=== PATIENT | female | born 1985 | race American Indian/Alaskan Native ===

== ENCOUNTER 2020-12-28 14:56 | Inpatient (IN) | payer OTHER ==
[2020-12-28] MEDS ORDERED: ONDANSETRON 4 MG/2 ML INJ IV PRN (14:59)
[2020-12-28] MEDS ORDERED: OXYTOCIN 10 UNIT/1 ML INJ IM PRN (14:59)
[2020-12-28] MEDS ORDERED: LOPERAMIDE 2 MG CAP PO PRN (14:59)
[2020-12-28] MEDS ORDERED: ePHEDrine SULFATE 50 MG/1 ML INJ IV PRN ×2 (14:59→19:31)
[2020-12-28] MEDS ORDERED: TERBUTALINE 1 MG/1 ML INJ SUB-Q PRN (14:59)
[2020-12-28] MEDS ORDERED: CARBOPROST TROMETHAMINE 250 MCG/1 ML INJ IM PRN (14:59)
[2020-12-28] MEDS ORDERED: MINERAL OIL 30 ML ORAL LIQD PO PRN (14:59)
[2020-12-28] MEDS ORDERED: ACETAMINOPHEN 325 MG TAB PO PRN (14:59)
[2020-12-28] MEDS ORDERED: miSOPROStol 200 MCG TAB PR PRN (14:59)
--- NOTE | 2020-12-28 15:06 | History and Physical Report ---
History of Present Illness Date of examination: 12/28/20 Date of admission: 12/28/20 14:56 Chief complaint: IOl @ 39 weeks d/t morbid obesity per APA recommendations History of present illness: EDC Calculations by LMP: 01/04/2021 Past History : 1 Term Births: 0 Premature Births: 0 Living Children: 0 Para: 0 Mult. Births: 0 Prev : 0 Prev. attempt? 0 Aborta: 0 Elect. Ab: 0 Spont. Ab: 0 Ectopics: 0 Past Medical History: pre- BMI 51 Past Surgical History: Breast reduction - age 19 Past Medical History Surgery (Non-osteopathy doctor): Breast reduction - age 19 Abnormal PAP: negative Family Hx: no known family health issues no known family hx of cancer Social Hx: Car SED [employer] Infection History HIV Risk Eval: no Hepatitis B Risk Eval: low risk Personal hx. of genital herpes: no Partner hx. of genital herpes: no Rash, Viral, or Febrile illness since last LMP? no Genetic History Congenital Heart Defect: Mom: no Dad: no Ana Disease: Mom: no Dad: no Thalassemia Mom: no Dad: no Neural Tube Defect Mom: no Dad: no Down's Syndrome Mom: no Dad: no Joe-Sachs Mom: no Dad: no Sickle Cell Disease/Trait Mom: no Dad: no Hemophilia Mom: no Dad: no Muscular Dystrophy Mom: no Dad: no Cystic Fibrosis Mom: no Dad: no Vin Chorea Mom: no Dad: no Mental Retardation Mom: no Dad: no Fragile X Mom: no Dad: no Other Genetic/Chromosomal Disorder Mom: no Dad: no Child w/other defect Mom: no Dad: no Active Medications: None Current Allergies (reviewed today): No known allergies Past History Past Medical History: other (see HPI) Past Surgical History: other (see HPI) [employer] P[employer]ER History: other (see HPI) Family/Genetic History: other (see HPI) Social history: no significant social history - Obstetrical History Expected Date of Delivery: 01/04/21 Actual Gestation: 39 Week(s) 0 Day(s) : 1 Para: 0 Hx # Term Pregnancies: 0 Number of Pregnancies: 0 Spontaneous Abortions: 0 Induced : 0 Number of Living Children: 0 Medications and Allergies Allergies Allergy/AdvReac Type Severity Reaction Status Date / Time No Known Allergies Allergy Unverified 12/28/20 16:32 Home Medications Medication Instructions Recorded Confirmed Last Taken Type No Known Home Medications [No 12/28/20 12/28/20 Unknown History Reported Home Medications] Review of Systems All systems: negative - Physical Exam Breasts: Positive: normal Cardiovascular: Regular rate Lungs: Positive: Normal air movement Abdomen: Positive: normal appearance, soft, normal bowel sounds Genitourinary (Female): Positive: normal external genitalia, normal perenium Vulva: both: normal Vagina: Positive: normal moisture Anus/Rectum: Positive: normal perianal skin Extremities: Positive: normal Deep Tendon Reflex Grade: Normal +2 - Obstetrical FHR: auscultation normal (efm difficult d/t maternal habitus) Uterine Contraction Monitor Mode: External Cervical Dilatation: 1 Cervical Effacement Percentage: 80 station: -1 Uterine Contraction Frequency (min): none Uterine Tone Measurement Phase: Resting Results All other labs normal. Assessment and Plan 35 y/o @ 39+0 weeks, admitted for IOL per APA's recommendation based on obesity. GBS NEG. Will do low dose pit tonight after dinner. pt may have ambien PRN. nurses to call for pain medication needs. - Patient Problems (1) 39 weeks gestation of Current Visit: Yes Status: Acute (2) BMI 50.0-59.9, adult Current Visit: Yes Status: Acute
[2020-12-28] MEDS ORDERED: DINOPROSTONE 10 MG VAG SUPP VG ONE (17:00)
[2020-12-28] MEDS ORDERED: METHYLERGONOVINE MALEATE 0.2 MG/ML VIAL IM PRN (17:00)
[2020-12-28] MEDS ORDERED: LIDOCAINE (2%) 20 MG/1 ML VIAL 20 ML MDV INFILTRATI ONE (17:00)
[2020-12-28] MEDS ORDERED: OXYTOCIN DRIP 30 UNITS/500 ML BAG IV SCH ×3 (17:00→18:30)
[2020-12-28 18:29] LABS: Hematocrit 33.9 % (30.3-42.9); Hemoglobin 11.3 gm/dl (10.1-14.3); Mean Corpuscular HGB Conc 33 % (30-34); Mean Corpuscular Volume 82 fl (79-97); Platelet Count 272 K/mm3 (140-440); Red Blood Count 4.15 M/mm3 (3.65-5.03); Red Cell Distribution Width 15.5 % (13.2-15.2)
[2020-12-28] MEDS ORDERED: NALOXONE 2 MG/2 ML INJ IV PRN (19:31)
--- NOTE | 2020-12-28 19:31 | Anesthesia Consultation ---
Anesthesia Consult and Med Hx Date of service: 12/28/20 - Airway Anesthetic Teeth Evaluation: Good ROM Head & Neck: Adequate Mental/Hyoid Distance: Adequate Mallampati Class: Class II Intubation Access Assessment: Probably Good - Pulmonary Exam CTA: Yes - Cardiac Exam Cardiac Exam: RRR - Pre-Operative Health Status ASA Pre-Surgery Classification: ASA3 Proposed Anesthetic Plan: Epidural - Pulmonary Hx Asthma: No COPD: No Hx Pneumonia: No - Cardiovascular System Hx Hypertension: No - Central Nervous System Hx Seizures: No Hx Psychiatric Problems: No - Endocrine Hx Renal Disease: No Hx End Stage Renal Disease: No Hx Hypothyroidism: No Hx Hyperthyroidism: No - Hematic Hx Anemia: No Hx Sickle Cell Disease: No - Other Systems Hx Alcohol Use: No Hx Obesity: Yes
[2020-12-28] MEDS: LACTATED RINGERS 1,000 ML IV SCH (19:54)
[2020-12-28] MEDS ORDERED: ZOLPIDEM 5 MG TAB PO ONE (21:00)
--- NOTE | 2020-12-29 06:45 | Progress Note ---
Assessment and Plan Pt resting Only question "How long is this going to take?" Explained serial IOL and that it may take 2-3 days Depending on her body's response to the induction agents. Pt voiced understanding. BP 130-120/80-70 FHR Cat 1. Ctx irreg frequency mild/mod. SVE unchanged. Pitocin low dose overnight Will begin routine IOL @ 0900 with pit 4mu increasing 4mu Q30min. All questions addressed. Re-eval as needed Subjective - Subjective Date of service: 12/29/20 (pt states some ctx hurt other do not) Principal diagnosis: IUP @ 39w1 day for IOL Patient reports: movement normal Objective - Vital Signs Vital Signs: Vital Signs - 12hr 12/28/20 12/28/20 12/28/20 18:40 18:45 18:50 Temperature Pulse Rate 84 78 85 Blood Pressure O2 Sat by Pulse 99 99 98 Oximetry 12/28/20 12/28/20 12/28/20 18:55 19:00 19:05 Temperature 98.1 F Pulse Rate 82 80 89 Blood Pressure 108/64 O2 Sat by Pulse 98 98 98 Oximetry 12/28/20 12/28/20 12/28/20 19:10 19:28 19:33 Temperature Pulse Rate 89 82 89 Blood Pressure O2 Sat by Pulse 99 100 99 Oximetry 12/28/20 12/28/20 12/28/20 19:38 19:43 19:48 Temperature Pulse Rate 82 83 81 Blood Pressure O2 Sat by Pulse 99 98 99 Oximetry 12/28/20 12/28/20 12/28/20 19:53 19:55 19:58 Temperature Pulse Rate 92 H 90 89 Blood Pressure 126/84 O2 Sat by Pulse 98 99 Oximetry 12/28/20 12/28/20 12/28/20 20:03 20:08 20:13 Temperature Pulse Rate 90 85 81 Blood Pressure O2 Sat by Pulse 99 99 99 Oximetry 12/28/20 12/28/20 12/28/20 20:18 20:23 20:28 Temperature Pulse Rate 92 H 84 85 Blood Pressure O2 Sat by Pulse 99 99 100 Oximetry 12/28/20 12/28/20 12/28/20 20:30 20:33 20:38 Temperature Pulse Rate 90 92 H 88 Blood Pressure O2 Sat by Pulse 93 99 99 Oximetry 12/28/20 12/28/2012/28/21 20:43 20:48 20:53 Temperature Pulse Rate 81 83 84 Blood Pressure O2 Sat by Pulse 99 99 99 Oximetry 12/28/20 12/28/20 12/28/20 20:55 20:58 21:03 Temperature Pulse Rate 83 84 84 Blood Pressure 128/81 O2 Sat by Pulse 98 98 Oximetry 12/28/20 12/28/20 12/28/20 21:08 21:13 21:18 Temperature Pulse Rate 86 85 80 Blood Pressure O2 Sat by Pulse 98 98 97 Oximetry 12/28/20 12/28/20 12/28/20 21:23 21:28 21:33 Temperature Pulse Rate 82 78 88 Blood Pressure O2 Sat by Pulse 98 98 100 Oximetry 12/28/20 12/28/20 12/28/20 21:38 21:43 21:47 Temperature Pulse Rate 78 80 80 Blood Pressure O2 Sat by Pulse 99 98 92 Oximetry 12/28/20 12/28/20 12/28/20 21:48 21:53 21:55 Temperature Pulse Rate 80 78 75 Blood Pressure 133/85 O2 Sat by Pulse 98 96 Oximetry 12/28/20 12/28/20 12/28/20 21:58 22:03 22:08 Temperature Pulse Rate 78 78 78 Blood Pressure O2 Sat by Pulse 96 96 96 Oximetry 12/28/20 12/28/20 12/28/20 22:13 22:18 22:23 Temperature Pulse Rate 79 84 76 Blood Pressure O2 Sat by Pulse 96 96 97 Oximetry 12/28/20 12/28/20 12/28/20 22:28 22:33 22:38 Temperature Pulse Rate 80 79 81 Blood Pressure O2 Sat by Pulse 98 99 98 Oximetry 12/28/20 12/28/20 12/28/20 22:43 22:48 22:55 Temperature Pulse Rate 75 85 85 Blood Pressure 136/87 O2 Sat by Pulse 98 99 Oximetry 12/28/20 12/28/20 12/28/20 23:00 23:05 23:10 Temperature 98.1 F Pulse Rate 81 80 Blood Pressure O2 Sat by Pulse 99 98 Oximetry 12/28/20 12/28/20 12/28/20 23:15 23:20 23:25 Temperature Pulse Rate 81 79 77 Blood Pressure O2 Sat by Pulse 99 98 98 Oximetry 12/28/20 12/28/2012/28/21 23:30 23:35 23:39 Temperature Pulse Rate 74 79 73 Blood Pressure O2 Sat by Pulse 99 98 94 Oximetry 12/28/20 12/28/20 12/28/20 23:40 23:45 23:50 Temperature Pulse Rate 71 79 77 Blood Pressure O2 Sat by Pulse 97 99 99 Oximetry 12/28/20 12/29/20 12/29/20 23:55 00:00 00:05 Temperature Pulse Rate 80 76 79 Blood Pressure 130/79 O2 Sat by Pulse 97 98 98 Oximetry 12/29/20 12/29/20 12/29/20 00:10 00:15 00:20 Temperature Pulse Rate 78 83 78 Blood Pressure O2 Sat by Pulse 99 99 99 Oximetry 12/29/20 12/29/20 12/29/20 00:25 00:30 00:35 Temperature Pulse Rate 74 87 79 Blood Pressure O2 Sat by Pulse 99 95 98 Oximetry 12/29/20 12/29/20 12/29/20 00:40 00:45 00:50 Temperature Pulse Rate 74 77 80 Blood Pressure O2 Sat by Pulse 100 99 99 Oximetry 12/29/20 12/29/20 12/29/20 00:55 01:00 01:11 Temperature Pulse Rate 75 81 80 Blood Pressure 107/63 O2 Sat by Pulse 98 99 98 Oximetry 12/29/20 12/29/20 12/29/20 01:16 01:21 01:26 Temperature Pulse Rate 89 83 78 Blood Pressure O2 Sat by Pulse 99 100 99 Oximetry 12/29/20 12/29/20 12/29/20 01:31 01:36 01:41 Temperature Pulse Rate 80 78 74 Blood Pressure O2 Sat by Pulse 99 98 99 Oximetry 12/29/20 12/29/20 12/29/20 01:46 01:51 01:55 Temperature Pulse Rate 71 72 69 Blood Pressure 138/79 O2 Sat by Pulse 98 98 Oximetry 12/29/20 12/29/20 12/29/20 01:56 02:01 02:04 Temperature Pulse Rate 72 70 70 Blood Pressure O2 Sat by Pulse 97 97 94 Oximetry 12/29/20 12/29/20 12/29/20 02:06 02:11 02:13 Temperature Pulse Rate 68 69 73 Blood Pressure O2 Sat by Pulse 97 99 91 Oximetry 12/29/20 12/29/2012/29/21 02:16 02:19 02:21 Temperature Pulse Rate 70 70 62 Blood Pressure O2 Sat by Pulse 98 92 96 Oximetry 12/29/20 12/29/20 12/29/20 02:26 02:31 02:40 Temperature Pulse Rate 68 82 86 Blood Pressure O2 Sat by Pulse 96 98 98 Oximetry 12/29/20 12/29/20 12/29/20 02:45 02:50 02:55 Temperature Pulse Rate 73 76 77 Blood Pressure 132/75 O2 Sat by Pulse 100 99 98 Oximetry 12/29/20 12/29/20 12/29/20 03:00 03:05 03:10 Temperature Pulse Rate 71 75 81 Blood Pressure O2 Sat by Pulse 98 99 98 Oximetry 12/29/20 12/29/20 12/29/20 03:11 03:15 03:20 Temperature Pulse Rate 82 76 79 Blood Pressure O2 Sat by Pulse 87 98 96 Oximetry 12/29/20 12/29/20 12/29/20 03:25 03:30 03:35 Temperature Pulse Rate 71 70 71 Blood Pressure O2 Sat by Pulse 98 97 97 Oximetry 12/29/20 12/29/20 12/29/20 03:40 03:45 03:48 Temperature Pulse Rate 70 70 80 Blood Pressure O2 Sat by Pulse 98 99 91 Oximetry 12/29/20 12/29/20 12/29/20 03:50 03:55 04:00 Temperature Pulse Rate 71 68 66 Blood Pressure 135/81 O2 Sat by Pulse 97 98 98 Oximetry 12/29/20 12/29/20 12/29/20 04:05 04:10 04:15 Temperature Pulse Rate 70 76 67 Blood Pressure O2 Sat by Pulse 97 94 91 Oximetry 12/29/20 12/29/20 12/29/20 04:20 04:25 04:27 Temperature Pulse Rate 82 75 69 Blood Pressure O2 Sat by Pulse 89 90 90 Oximetry 12/29/20 12/29/20 12/29/20 04:30 04:32 04:35 Temperature Pulse Rate 82 61 72 Blood Pressure O2 Sat by Pulse 90 89 81 L Oximetry 12/29/20 12/29/20 12/29/20 04:38 04:40 04:44 Temperature Pulse Rate 73 79 74 Blood Pressure O2 Sat by Pulse 92 99 91 Oximetry 12/29/20 12/29/2021 04:45 04:50 04:55 Temperature Pulse Rate 79 80 89 Blood Pressure 126/80 O2 Sat by Pulse 99 97 96 Oximetry 12/29/20 12/29/20 12/29/20 05:08 05:13 05:18 Temperature Pulse Rate 37 L 91 H 79 Blood Pressure O2 Sat by Pulse 96 99 98 Oximetry 12/29/20 12/29/20 12/29/20 05:23 05:28 05:33 Temperature Pulse Rate 70 79 69 Blood Pressure O2 Sat by Pulse 98 98 97 Oximetry 12/29/20 12/29/20 12/29/20 05:38 05:43 05:48 Temperature Pulse Rate 89 83 79 Blood Pressure O2 Sat by Pulse 99 98 99 Oximetry 12/29/20 12/29/20 12/29/20 05:53 05:55 05:58 Temperature Pulse Rate 76 71 76 Blood Pressure 124/78 O2 Sat by Pulse 99 97 Oximetry 12/29/20 12/29/20 12/29/20 05:59 06:03 06:08 Temperature Pulse Rate 89 76 88 Blood Pressure O2 Sat by Pulse 94 98 98 Oximetry 12/29/20 12/29/20 12/29/20 06:13 06:18 06:23 Temperature Pulse Rate 70 73 78 Blood Pressure O2 Sat by Pulse 96 98 97 Oximetry 12/29/20 12/29/20 06:28 06:33 Temperature Pulse Rate 77 82 Blood Pressure O2 Sat by Pulse 98 98 Oximetry - Exam Breasts: deferred Cardiovascular: Regular rate Lungs: Clear to auscultation Abdomen: Present: normal appearance, soft. Absent: distention, tenderness Uterus: Present: normal FHR: auscultation normal, category 1 Uterine Contraction Monitor Mode: External Cervical Dilatation: 1 Cervical Effacement Percentage: 100 station: -1 Uterine Contraction Pattern: Irregular Uterine Tone Measurement Phase: Resting Uterine Contraction Intensity: Mild Extremities: edema Deep Tendon Reflex Grade: Normal +2 - Labs Labs: Abnormal Labs 12/28/20 18:16 MCH 27 L RDW 15.5 H Laboratory Results - last 24 hr 12/28/20 12/28/20 12/28/20 17:56 18:16 18:16 WBC 9.8 RBC 4.15 Hgb 11.3 Hct 33.9 MCV 82 MCH 27 L MCHC 33 RDW 15.5 H Plt Count 272 Syphilis IgG Antibody Nonreactive HIV 1&2 Antibody Rapid HIV P24 Antigen Blood Type O POSITIVE Antibody Screen Negative 12/28/20 18:16 WBC RBC Hgb Hct MCV MCH MCHC RDW Plt Count Syphilis IgG Antibody HIV 1&2 Antibody Rapid Non react HIV P24 Antigen Non react Blood Type Antibody Screen
[2020-12-29] MEDS ORDERED: OXYTOCIN DRIP 30 UNITS/500 ML BAG IV SCH (09:00)
[2020-12-29] MEDS: LACTATED RINGERS 1,000 ML IV SCH ×3 (10:26→17:48)
--- NOTE | 2020-12-29 16:38 | Progress Note ---
Assessment and Plan Pt OOB to toilet SVE done after 3-4,80,-2 head now OT presentation. Pit @12mu Bolus started for epidural Dr Wasserman made aware of pt status. Text sent to Leander jones . Pt stable. Anticipate delivery later tonight. Subjective - Subjective Date of service: 12/29/20 (Pt states she is really feeling her ctx now) Principal diagnosis: IUP @ 39w1 day for IOL Patient reports: movement normal Objective - Vital Signs Vital Signs: Vital Signs - 12hr 12/29/20 12/29/20 12/29/20 04:35 04:38 04:40 Temperature Pulse Rate 72 73 79 Respiratory Rate Blood Pressure O2 Sat by Pulse 81 L 92 99 Oximetry 12/29/20 12/29/20 12/29/20 04:44 04:45 04:50 Temperature Pulse Rate 74 79 80 Respiratory Rate Blood Pressure O2 Sat by Pulse 91 99 97 Oximetry 12/29/20 12/29/20 12/29/20 04:55 05:08 05:13 Temperature Pulse Rate 89 37 L 91 H Respiratory Rate Blood Pressure 126/80 O2 Sat by Pulse 96 96 99 Oximetry 12/29/20 12/29/20 12/29/20 05:18 05:23 05:28 Temperature Pulse Rate 79 70 79 Respiratory Rate Blood Pressure O2 Sat by Pulse 98 98 98 Oximetry 12/29/20 12/29/20 12/29/20 05:33 05:38 05:43 Temperature Pulse Rate 69 89 83 Respiratory Rate Blood Pressure O2 Sat by Pulse 97 99 98 Oximetry 12/29/20 12/29/20 12/29/20 05:48 05:53 05:55 Temperature Pulse Rate 79 76 71 Respiratory Rate Blood Pressure 124/78 O2 Sat by Pulse 99 99 Oximetry 12/29/20 12/29/20 12/29/20 05:58 05:59 06:03 Temperature Pulse Rate 76 89 76 Respiratory Rate Blood Pressure O2 Sat by Pulse 97 94 98 Oximetry 12/29/20 12/29/20 12/29/20 06:08 06:13 06:18 Temperature Pulse Rate 88 70 73 Respiratory Rate Blood Pressure O2 Sat by Pulse 98 96 98 Oximetry 12/29/20 12/29/20 12/29/20 06:23 06:28 06:33 Temperature Pulse Rate 78 77 82 Respiratory Rate Blood Pressure O2 Sat by Pulse 97 98 98 Oximetry 12/29/20 12/29/20 12/29/20 06:38 06:43 06:48 Temperature Pulse Rate 81 77 82 Respiratory Rate Blood Pressure O2 Sat by Pulse 99 99 99 Oximetry 12/29/20 12/29/20 12/29/20 06:53 06:55 06:58 Temperature Pulse Rate 76 74 76 Respiratory Rate Blood Pressure 136/79 O2 Sat by Pulse 99 99 Oximetry 12/29/20 12/29/20 12/29/20 07:03 07:08 07:09 Temperature 98.1 F Pulse Rate 73 74 Respiratory 18 Rate Blood Pressure O2 Sat by Pulse 100 100 Oximetry 12/29/20 12/29/20 12/29/20 07:13 07:18 07:22 Temperature Pulse Rate 75 73 75 Respiratory Rate Blood Pressure 130/85 O2 Sat by Pulse 98 98 Oximetry 12/29/20 12/29/20 12/29/20 07:23 07:28 07:33 Temperature Pulse Rate 80 82 76 Respiratory Rate Blood Pressure O2 Sat by Pulse 98 99 97 Oximetry 12/29/20 12/29/20 12/29/20 07:38 07:39 07:43 Temperature Pulse Rate 69 76 80 Respiratory Rate Blood Pressure O2 Sat by Pulse 95 94 99 Oximetry 12/29/20 12/29/20 12/29/20 07:48 07:53 07:55 Temperature Pulse Rate 88 69 78 Respiratory Rate Blood Pressure 123/78 O2 Sat by Pulse 99 99 Oximetry 12/29/20 12/29/20 12/29/20 07:58 08:03 08:08 Temperature Pulse Rate 83 77 73 Respiratory Rate Blood Pressure O2 Sat by Pulse 99 99 99 Oximetry 12/29/20 12/29/20 12/29/20 08:13 08:18 08:23 Temperature Pulse Rate 75 76 78 Respiratory Rate Blood Pressure O2 Sat by Pulse 99 98 100 Oximetry 12/29/20 12/29/20 12/29/20 08:28 08:33 08:38 Temperature Pulse Rate 72 82 74 Respiratory Rate Blood Pressure O2 Sat by Pulse 98 98 98 Oximetry 12/29/20 12/29/20 12/29/20 08:43 08:48 08:53 Temperature Pulse Rate 76 74 77 Respiratory Rate Blood Pressure O2 Sat by Pulse 98 98 96 Oximetry 12/29/20 12/29/20 12/29/20 08:55 08:58 09:03 Temperature Pulse Rate 74 75 78 Respiratory Rate Blood Pressure 131/72 O2 Sat by Pulse 98 98 Oximetry 12/29/20 12/29/20 12/29/20 09:08 09:13 09:18 Temperature Pulse Rate 79 82 71 Respiratory Rate Blood Pressure O2 Sat by Pulse 99 98 99 Oximetry 12/29/20 12/29/20 12/29/20 09:23 09:28 09:41 Temperature Pulse Rate 81 89 94 H Respiratory Rate Blood Pressure O2 Sat by Pulse 100 98 100 Oximetry 12/29/20 12/29/20 12/29/20 09:46 09:51 09:55 Temperature Pulse Rate 85 80 78 Respiratory Rate Blood Pressure 123/75 O2 Sat by Pulse 99 100 Oximetry 12/29/20 12/29/20 12/29/20 09:56 10:05 10:10 Temperature Pulse Rate 82 82 80 Respiratory Rate Blood Pressure O2 Sat by Pulse 99 99 100 Oximetry 12/29/20 12/29/20 12/29/20 10:15 10:20 10:25 Temperature Pulse Rate 79 81 74 Respiratory Rate Blood Pressure O2 Sat by Pulse 99 99 100 Oximetry 12/29/20 12/29/20 12/29/20 10:30 10:35 10:40 Temperature Pulse Rate 83 85 73 Respiratory Rate Blood Pressure O2 Sat by Pulse 99 99 99 Oximetry 12/29/20 12/29/20 12/29/20 10:45 10:50 10:55 Temperature Pulse Rate 77 76 73 Respiratory Rate Blood Pressure 130/69 O2 Sat by Pulse 99 99 96 Oximetry 12/29/20 12/29/20 12/29/20 11:00 11:05 11:10 Temperature Pulse Rate 76 91 H 79 Respiratory Rate Blood Pressure O2 Sat by Pulse 99 99 99 Oximetry 12/29/20 12/29/20 12/29/20 11:21 11:26 11:31 Temperature Pulse Rate 87 78 78 Respiratory Rate Blood Pressure O2 Sat by Pulse 100 99 99 Oximetry 12/29/20 12/29/20 12/29/20 11:36 11:41 11:46 Temperature Pulse Rate 76 80 81 Respiratory Rate Blood Pressure O2 Sat by Pulse 99 98 96 Oximetry 12/29/20 12/29/20 12/29/20 11:51 11:56 12:01 Temperature Pulse Rate 82 73 79 Respiratory Rate Blood Pressure O2 Sat by Pulse 99 98 99 Oximetry 12/29/20 12/29/20 12/29/20 12:06 12:11 12:16 Temperature Pulse Rate 77 78 81 Respiratory Rate Blood Pressure 121/73 O2 Sat by Pulse 98 99 97 Oximetry 12/29/20 12/29/20 12/29/20 12:21 12:26 12:31 Temperature Pulse Rate 75 80 76 Respiratory Rate Blood Pressure O2 Sat by Pulse 98 100 99 Oximetry 12/29/20 12/29/20 12/29/20 12:36 12:41 12:42 Temperature 98.1 F Pulse Rate 76 82 Respiratory 18 Rate Blood Pressure O2 Sat by Pulse 99 100 Oximetry 12/29/20 12/29/20 12/29/20 12:46 12:51 12:55 Temperature Pulse Rate 74 78 72 Respiratory Rate Blood Pressure 114/72 O2 Sat by Pulse 100 100 Oximetry 12/29/20 12/29/20 12/29/20 12:56 13:01 13:06 Temperature Pulse Rate 92 H 72 74 Respiratory Rate Blood Pressure O2 Sat by Pulse 100 99 99 Oximetry 12/29/20 12/29/20 12/29/20 13:11 13:16 13:21 Temperature Pulse Rate 71 85 78 Respiratory Rate Blood Pressure O2 Sat by Pulse 99 99 98 Oximetry 12/29/20 12/29/20 12/29/20 13:26 13:31 13:36 Temperature Pulse Rate 75 80 73 Respiratory Rate Blood Pressure O2 Sat by Pulse 98 99 99 Oximetry 12/29/20 12/29/20 12/29/20 13:41 13:46 13:51 Temperature Pulse Rate 91 H 76 74 Respiratory Rate Blood Pressure O2 Sat by Pulse 99 99 98 Oximetry 12/29/20 12/29/20 12/29/20 13:55 13:56 14:01 Temperature Pulse Rate 77 79 75 Respiratory Rate Blood Pressure 118/64 O2 Sat by Pulse 99 98 Oximetry 12/29/20 12/29/20 12/29/20 14:06 14:11 14:16 Temperature Pulse Rate 75 81 86 Respiratory Rate Blood Pressure O2 Sat by Pulse 99 99 97 Oximetry 12/29/20 12/29/20 12/29/20 14:21 15:17 15:22 Temperature Pulse Rate 82 77 76 Respiratory Rate Blood Pressure O2 Sat by Pulse 98 100 98 Oximetry 12/29/20 12/29/20 12/29/20 15:27 15:32 15:37 Temperature Pulse Rate 77 82 82 Respiratory Rate Blood Pressure O2 Sat by Pulse 99 100 97 Oximetry 12/29/20 12/29/20 12/29/20 15:42 15:47 15:52 Temperature Pulse Rate 78 77 84 Respiratory Rate Blood Pressure O2 Sat by Pulse 99 100 99 Oximetry 12/29/20 12/29/20 12/29/20 15:56 15:57 16:02 Temperature Pulse Rate 74 77 72 Respiratory Rate Blood Pressure 106/59 O2 Sat by Pulse 100 100 Oximetry 12/29/20 16:07 Temperature Pulse Rate 79 Respiratory Rate Blood Pressure O2 Sat by Pulse 99 Oximetry - Exam Breasts: deferred Cardiovascular: Regular rate Lungs: Normal air movement Abdomen: Present: normal appearance, soft. Absent: distention, tenderness Uterus: Present: normal FHR: auscultation normal, category 1 Uterine Contraction Monitor Mode: External Cervical Dilatation: 3.5 (Baby is now OT) Cervical Effacement Percentage: 80 station: -2 Uterine Contraction Pattern: Regular Uterine Tone Measurement Phase: Resting Uterine Contraction Intensity: Moderate Extremities: edema Deep Tendon Reflex Grade: Normal +2 - Labs Labs: Abnormal Labs 12/28/20 18:16 MCH 27 L RDW 15.5 H Laboratory Results - last 24 hr 12/28/20 12/28/20 12/28/20 17:56 18:16 18:16 WBC 9.8 RBC 4.15 Hgb 11.3 Hct 33.9 MCV 82 MCH 27 L MCHC 33 RDW 15.5 H Plt Count 272 Syphilis IgG Antibody Nonreactive Coronavirus (PCR) HIV 1&2 Antibody Rapid HIV P24 Antigen Blood Type O POSITIVE Antibody Screen Negative 12/28/20 12/29/20 18:16 09:21 WBC RBC Hgb Hct MCV MCH MCHC RDW Plt Count Syphilis IgG Antibody Coronavirus (PCR) Negative HIV 1&2 Antibody Rapid Non react HIV P24 Antigen Non react Blood Type Antibody Screen
--- NOTE | 2020-12-29 17:25 | Progress Note ---
Labor Epidural - Labor Epidural Start Time: 17:09 Stop Time: 17:19 Performed by:: SIMONA AREVALO Procedure: Patient is requesting epidural for labor pain. H&P, and labs reviewed. Procedure explained, questions answered, consent obtained. Patient in sitting position with blood pressure cuff and pulse ox on and working. Timeout performed immediately before start of procedure. Sterile chlorahexadine 0.5% prep/drape. 3 mL 1% lidocaine skin wheal at L[3]-L[4]. 18-gauge Criteotead epidural needle advanced to [id number] with saline at 9 cm. Epidural catheter advanced to 15 cm, negative aspiration for blood and csf, negative test dose 3 ml 1.5% lidocaine with epinephrine. Epidural dexmedetomidine [30] mcg administered. Sterile steri-strips and tegaderm applied, followed by tape reinforcement. Patient tolerated procedure well. Watson CAN
[2020-12-29] MEDS: fentaNYL-BUPIV 2 MCG/ML-0.125% 200 MCG/100 ML BAG EPIDURAL SCH (17:55)
--- NOTE | 2020-12-29 20:10 | Event Note ---
Date: 12/29/20 CNM at bedside, pt consented for internal monitoring and AROM, clear fluid noted and internal monitors placed d/t fetus difficult to trace. SVE 4/50/-2 VTX with CAT 2 FHT's noted, DR. Wasserman notified and to bedside for strip review and POC discussion with pt. Pt made aware of poss. plan for C/S if Cat 2 strip continues. Now Cat 1 with Pitocin off, O2 @10L via face mask, and RL positioning; continue to monitor pt closely, restart Pitocin with Cat 1 strip; anticipate .
[2020-12-30] MEDS: fentaNYL-BUPIV 2 MCG/ML-0.125% 200 MCG/100 ML BAG EPIDURAL SCH (01:47)
[2020-12-30] MEDS: LACTATED RINGERS 1,000 ML IV SCH (06:18)
--- NOTE | 2020-12-30 07:38 | Procedure Note ---
OB Delivery Note - Delivery Date of Delivery: 12/30/20 Surgeon: MYLA REYNOSO (Dr. Wasserman present for delivery) Estimated blood loss: <100cc - Vaginal Delivery presentation: vertex Delivery position: OA Intrapartum events: mult. late decelerations, mult.variable deceleratio Delivery induction: oxytocin Delivery augmentation: rupture of membranes Delivery monitor: external FHT, external uterine, internal FHT, internal uterine Route of delivery: Delivery placenta: spontaneous Delivery cord: 3 umbilical vessels Episiotomy: none Delivery laceration: 1st degree Delivery repair: other (hemostatic and repair not needed) Anesthesia: epidural - A at 1 minute: 8 at 5 minutes: 9 Gender: Female (5lbs 8oz)
[2020-12-30] MEDS ORDERED: BENZOCAINE/MENTHOL 20/0.5% TOP SPRAY 56 GM TP PRN (11:00)
[2020-12-30] MEDS ORDERED: LANOLIN/ZINC/DIMETHICONE (LANSINOH) 7 GM TP PRN (11:00)
[2020-12-30] MEDS ORDERED: ONDANSETRON 4 MG/2 ML INJ IV PRN (11:00)
[2020-12-30] MEDS ORDERED: diphenhydrAMINE 25 MG CAP PO PRN (11:00)
[2020-12-30] MEDS ORDERED: WITCH HAZEL/ GLYCERIN PAD TP PRN (11:00)
[2020-12-30] MEDS ORDERED: PROMETHAZINE 25 MG TAB PO PRN (11:00)
[2020-12-30] MEDS: IBUPROFEN 600 MG TAB PO SCH ×2 (12:33→17:50)
[2020-12-30] MEDS: PRENATAL VIT27-FE FUMARATE-FOLIC ACID VIT TAB PO SCH (12:33)
--- NOTE | 2020-12-30 16:43 | Post Anesthesia Evaluation ---
- Post Anesthesia Evaluation Patient Participated: Yes Airway Patent: Yes Stable Respiratory Function: Yes Nausea/Vomiting: No Temp > 96.8F: Yes Pain Manageable: Yes Adequeate Hydration: Yes Anesthesia Complications: No Block Receding Appropriately: Yes Patient on Ventilator: No
[2020-12-30] MEDS ORDERED: ACETAMINOPHEN 500 MG TAB PO PRN (20:00)
[2020-12-30 20:54] LABS: Hematocrit 33.5 % (30.3-42.9); Hemoglobin 11.2 gm/dl (10.1-14.3)
[2020-12-30] MEDS ORDERED: MAGNESIUM HYDROXIDE (MOM) ORAL LIQD UDC PO PRN (22:00)
[2020-12-30] MEDS: FERROUS SULFATE 325 MG TAB PO SCH (22:21)
[2020-12-30] MEDS: DOCUSATE SODIUM 100 MG CAP PO SCH (22:22)
[2020-12-31] MEDS: IBUPROFEN 600 MG TAB PO SCH ×3 (01:07→12:15)
--- NOTE | 2020-12-31 08:48 | Event Note ---
Date: 12/31/20 (Some elevated blood pressures.) Pt with some elevated blood pressures after delivery. Blood pressure ranges have mostly been 120-140's/60-80's. There was one blood pressure that was 167/77. Spoke with patient regarding plan to draw labs before she can be discharged home. We also discussed that she will need to come to the office in 1 week for a blood pressure check. Pt verbalized understanding. She currently denies ROWE, blurred vision, spots before her eyes, shortness of breath, chest pain, and upper abdominal pain. Spoke with patient's RN and she is aware that labs will be drawn.
[2020-12-31 11:38] LABS: Hematocrit 32.5 % (30.3-42.9); Hemoglobin 10.8 gm/dl (10.1-14.3); Mean Corpuscular HGB Conc 33 % (30-34); Mean Corpuscular Volume 82 fl (79-97); Platelet Count 267 K/mm3 (140-440); Red Blood Count 3.96 M/mm3 (3.65-5.03); Red Cell Distribution Width 15.3 % (13.2-15.2)
[2020-12-31 11:43] LABS: Alanine Aminotransferase 13 units/L (7-56); Uric Acid 4.7 mg/dL (3.5-7.6)
[2020-12-31] MEDS: DOCUSATE SODIUM 100 MG CAP PO SCH (12:15)
[2020-12-31] MEDS: PRENATAL VIT27-FE FUMARATE-FOLIC ACID VIT TAB PO SCH (12:15)
[2020-12-31] MEDS: FERROUS SULFATE 325 MG TAB PO SCH (12:15)
--- NOTE | 2020-12-31 12:43 | Discharge Summary ---
Providers - Providers Date of Admission: 12/28/20 14:56 Date of discharge: 12/31/20 (Pt has strong desire to go home. ) Attending physician: HAYLEE MORIN 12/30/20 10:43 Consult to Teacher Lip Reading [CONS] Routine Reason For Exam: assistance with , SNS Primary care physician: HAYLEE MORNI Hospitalization Reason for admission: induction of labor Delivery: Episiotomy: none Laceration: 1st degree (No repair needed.) Other procedures: none complications: none Discharge diagnosis: IUP at term delivered Marydel baby: female Pertinent studies: Pt has some elevated blood pressures during hospital stay. Ranges have mostly been 120-140's/60-70's. She denies ROWE, blurred vision, spots before her eyes, chest pain, shortness of breath, and upper abdominal pain. Explained how to take a proper blood pressure at home. Pt to come to the clinic in 1 week for a blood pressure check. We also discussed should any of the above s/sx occur as well as blood pressure being 140/90 or greater, pt will need to call the clinic and speak to the preparation supervisor provider for further instructions. Pt verbalized understanding of these instructions. Pre eclampsia labs drawn and have resulted as WNL. Hospital course: S: Pt doing well. Voiding, ambulating, and passing flatus okay. O: VSS. H/H [id number]. Unable to assess fundus d/t body habitius. Minimal bleeding noted. A: 35 y.o. s/p . and in good condition to go home. P: Discharge home with instructions. Pt to come to the clinic in 1 week for blood pressure check. Pt to schedule a visit in the office in 4 weeks. Condition at discharge: Good Disposition: [id number] TO HOME OR SELFCARE Plan - Provider Discharge Summary Activity: routine, no sex for 6 weeks, no heavy lifting 4 weeks, no strenuous exercise Diet: routine Instructions: routine Additional instructions: [] Smoking cessation referral if applicable(refer to patient education folder for contact #) [] Refer to [facility] Booklet Call your doctor immediately for: * Fever > 100.5 * Heavy vaginal bleeding ( >1 pad per hour) * Severe persistent headache * Shortness of breath * Reddened, hot, painful area to leg or breast * Drainage or odor from incision. * Keep incision clean and dry at all times and follow doctor's instructions regarding bathing/showering Congratulations on your beautiful baby girl! Please schedule a blood pressure check in the office in 1 week. Please schedule a visit 4 weeks after that. Should you have any questions or concern after discharge, please do not hesitate to call the office at [phone]. Taking your blood pressure at home Please take your blood pressure once daily Taking your blood pressure with a wrist monitor: 1. Put the blood pressure cuff on your wrist. Make sure it is not on the bone of your wrist. 2. Sit with your legs uncrossed and feet flat on the ground. 3. Wait 5-10 minutes before taking your blood pressure. 4. If you wrist monitor requires you to put your arm across your chest before taking the blood pressure: After 5-10 minutes, put your arm across your chest like you are about to say the pledge of allegiance. While you are at home, if you experience a headache, blurred vision, spots before your eyes, chest pain, shortness of breath, and pain in your upper belly, and/or your blood pressure is 140/90 or greater please call the on-call provider immediately for further instructions. - Follow up plan Follow up: HAYLEE MORIN MD [Primary Care Provider] - 7 Days Forms: [facility] Discharge Summary
[2020-12-31 16:36] VITALS: BP 137/71
== END 2020-12-31 17:15 | disposition home or self-care (01) | DRG 807 ==
LOC: LD 14:56 → OB 12-30 11:04
PROVIDERS: ADMIT Obstetrics & Gynecology; ATTEND Obstetrics & Gynecology
PROC: 10E0XZZ Delivery of Products of Conception, External Approach (ICD-10-PCS; principal; 2020-12-30)
PROC: 3E0R3BZ Introduction of Anesthetic Agent into Spinal Canal, Percutaneous Approach (ICD-10-PCS; 2020-12-30)
PROC: 00HU33Z Insertion of Infusion Device into Spinal Canal, Percutaneous Approach (ICD-10-PCS; 2020-12-30)
DX: O76 Abnormality in fetal heart rate and rhythm complicating labor and delivery (principal); Z37.0 Single live birth; Z3A.39 39 weeks gestation of pregnancy; Z20.822 Contact with and (suspected) exposure to COVID-19; O32.2XX0 Maternal care for transverse and oblique lie, not applicable or unspecified; O70.0 First degree perineal laceration during delivery; E66.01 Morbid (severe) obesity due to excess calories; O99.214 Obesity complicating childbirth
CPT/HCPCS: 36415; 82565; 83615; 84450; 84460; 84550; 85014; 85018; 85027; 86592; 86850; 86900; 86901; 87806; 88307; 99211; G0378; G0463; J2590; J7120; U0003